=== PATIENT | female | born 1995 | race Two or more races ===

== ENCOUNTER 2020-07-19 06:47 | Emergency (ER) | payer MEDICAID ==
[~2020-07-19] VITALS: Ht 167.6 cm; Wt 85.0 kg
[2020-07-19] MEDS ORDERED: SODIUM CHLORIDE 0.9% 1,000ML IVBOLUS ONE (07:00)
[2020-07-19] MEDS ORDERED: ONDANSETRON ODT 4 MG PO ONE (07:00)
[2020-07-19] MEDS ORDERED: ONDANSETRON ODT 4 MG ONE (07:09)
--- NOTE | 2020-07-19 07:17 | NUR ---
PT C/O N/V AND DIARRHEA SINCE 07/17. PT ALSO HAS EPIGASTRIC PAIN, DULL. PT IS 1 WEEKS WITH FIRST CHILD. PT DENIES ANY MEDICAL HX.
--- NOTE | 2020-07-19 07:57 | NUR ---
PT OFF THE FLOOR TO ULTRASOUND
[2020-07-19 08:03] LABS: BASOPHILS % (AUTO) 0 % (0-1); EOSINOPHILS % (AUTO) 0 % (1-7); LYMPHOCYTES % (AUTO) 6 % (22-44); MEAN CORPUSCULAR HEMOGLOBIN 27.5 pg (27.0-34.8); MEAN CORPUSCULAR HGB CONC 33.9 g/dL (32.4-35.8); MEAN PLATELET VOLUME 8.3 fL (7.4-10.4); MONOCYTES % (AUTO) 2 % (2-9); NEUTROPHILS % (AUTO) 92 % (42-75); PLATELET COUNT 374 x10^3/uL (130-400); RED BLOOD COUNT 5.64 x10^6/uL (3.82-5.3); RED CELL DISTRIBUTION WIDTH 13.2 % (9.6-15.2)
--- NOTE | 2020-07-19 08:05 | NUR ---
PT BACK FROM ULTRASOUND
[2020-07-19 08:27] LABS: MD SCAN
[2020-07-19] MEDS ORDERED: METOCLOPRAMIDE 5 MG/ML, 2ML IVPush ONE (08:30)
[2020-07-19] MEDS ORDERED: METOCLOPRAMIDE 5 MG/ML, 2ML ONE (08:39)
--- NOTE | 2020-07-19 09:20 | NUR ---
PT STATES SHE FEELS RELIEF FROM THE NAUSEA AFTER MEDICATION.
[2020-07-19 09:39] LABS: MICROSCOPIC INDICATED
--- NOTE | 2020-07-19 10:29 | NUR ---
PT REC'VD DISCHARGE INSTRUCTIONS AND EDUCATION PT HAD NO FURTHER QUESTIONS. PT AMBULATED TO DC AREA, STEADY GAIT,.
[2020-07-19 10:33] VITALS: BP 120/70
== END 2020-07-19 10:35 | disposition home or self-care (01) ==
LOC: ED 08:16
DX: O23.11 Infections of bladder in pregnancy, first trimester (principal); R10.2 Pelvic and perineal pain; R11.2 Nausea with vomiting, unspecified; Z3A.11 11 weeks gestation of pregnancy
CPT/HCPCS: 36415; 76801; 81001; 84702; 85025; 87086; 96361; 96374; 99284; J2765; J7030; Q0162

== ENCOUNTER 2020-07-21 13:44 | Inpatient (IN) | payer MEDICAID ==
[~2020-07-21] VITALS: Ht 167.6 cm; Wt 83.7 kg
[2020-07-21 14:56] LABS: BASOPHILS % (AUTO) 0 % (0-1); EOSINOPHILS % (AUTO) 0 % (1-7); LYMPHOCYTES % (AUTO) 17 % (22-44); MEAN CORPUSCULAR HEMOGLOBIN 27.9 pg (27.0-34.8); MEAN CORPUSCULAR HGB CONC 34.3 g/dL (32.4-35.8); MEAN PLATELET VOLUME 8.2 fL (7.4-10.4); MONOCYTES % (AUTO) 6 % (2-9); NEUTROPHILS % (AUTO) 78 % (42-75); PLATELET COUNT 324 x10^3/uL (130-400); RED BLOOD COUNT 5.08 x10^6/uL (3.82-5.3); RED CELL DISTRIBUTION WIDTH 13.3 % (9.6-15.2)
[2020-07-21 15:00] LABS: MD NO
[2020-07-21] MEDS ORDERED: SODIUM CHLORIDE FLUSH 10ML SYR IVF ONE (15:00)
[2020-07-21] MEDS ORDERED: SODIUM CHLORIDE 0.9% 1,000ML IVBOLUS ONE (15:00)
[2020-07-21] MEDS ORDERED: METOCLOPRAMIDE 5 MG/ML, 2ML IVPush ONE (15:00)
[2020-07-21] MEDS ORDERED: METOCLOPRAMIDE 5 MG/ML, 2ML ONE (15:02)
[2020-07-21 15:10] LABS: ALANINE AMINOTRANSFERASE 63 U/L (12-78); ALBUMIN 3.4 g/dL (3.4-5.0); ANION GAP 8 mmol/L (5-15); CHLORIDE 102 mmol/L (98-107)
[2020-07-21 15:12] LABS: ALKALINE PHOSPHATASE 64 U/L (45-117); BILIRUBIN,TOTAL 0.9 mg/dL (0.2-1.0); TOTAL PROTEIN 7.5 g/dL (6.4-8.2)
[2020-07-21] MEDS ORDERED: POTASSIUM CHLORIDE 20 MEQ PACKET ONE (15:47)
--- NOTE | 2020-07-21 15:52 | NUR ---
task rn: Pt states feeling less nauseous after Reglan. vss, given warm blankets.
[2020-07-21] MEDS ORDERED: POTASSIUM CHLORIDE 20 MEQ PACKET PO ONE (16:00)
--- NOTE | 2020-07-21 16:27 | NUR ---
ALL RESULTS BACK, PT FOR RECHECK.
[2020-07-21] MEDS ORDERED: ACETAMINOPHEN 325 MG TABLET PO PRN (17:30)
[2020-07-21] MEDS ORDERED: PROMETHAZINE 25 MG/ML, 1ML IM PRN (17:30)
[2020-07-21] MEDS ORDERED: MELATONIN 5 MG TABLET PO PRN (17:30)
[2020-07-21] MEDS ORDERED: ONDANSETRON ODT 4 MG PO PRN (17:30)
--- NOTE | 2020-07-21 17:35 | NUR ---
ADMIT ORDER IN PLACE, DR SCHULZ IN TO SEE PT.
[2020-07-21] MEDS ORDERED: ONDANSETRON 2MG/ML, 2ML IVPush ONE (18:00)
[2020-07-21] MEDS ORDERED: POTASSIUM CHLORIDE 40 MEQ in SODIUM CHLORIDE 0.9% 500 ML IV ONE (18:00)
[2020-07-21] MEDS: NS + 20MEQ KCL 1,000 ML IV SCH (18:06)
--- NOTE | 2020-07-21 18:07 | NUR ---
REPORT TO DIP[facility], PT READY FOR TRANSPORT. NS WITH 40ME[facility] STARTED PRIOR TO TRANSPORT.
[2020-07-21] MEDS ORDERED: MAGNESIUM SULFATE PMX 2GM/50ML 50 ML IV ONE (18:30)
[2020-07-21 19:17] VITALS: BP 138/83
[2020-07-21 19:19] VITALS: BP 141/84
[2020-07-21] MEDS: METOCLOPRAMIDE 5 MG/ML, 2ML IVPush PRN (21:19)
[2020-07-21] MEDS: CEFDINIR 300 MG CAPSULE PO SCH (21:19)
[2020-07-21 21:56] LABS: MICROSCOPIC INDICATED
[2020-07-22] MEDS: ONDANSETRON 2MG/ML, 2ML IVPush PRN ×3 (00:34→22:38)
[2020-07-22 01:27] VITALS: BP 122/61
[2020-07-22] MEDS: NS + 20MEQ KCL 1,000 ML IV SCH ×2 (02:01→11:52)
[2020-07-22 06:41] LABS: BASOPHILS % (AUTO) 0 % (0-1); EOSINOPHILS % (AUTO) 0 % (1-7); LYMPHOCYTES % (AUTO) 18 % (22-44); MEAN CORPUSCULAR HEMOGLOBIN 27.6 pg (27.0-34.8); MEAN CORPUSCULAR HGB CONC 33.9 g/dL (32.4-35.8); MEAN PLATELET VOLUME 8.4 fL (7.4-10.4); MONOCYTES % (AUTO) 6 % (2-9); NEUTROPHILS % (AUTO) 76 % (42-75); PLATELET COUNT 299 x10^3/uL (130-400); RED CELL DISTRIBUTION WIDTH 13.1 % (9.6-15.2)
[2020-07-22 06:49] LABS: CHLORIDE 104 mmol/L (98-107)
[2020-07-22 06:53] LABS: ANION GAP 9 mmol/L (5-15); CALCIUM 8.2 mg/dL (8.5-10.1); CREATININE 0.45 mg/dL (0.55-1.02)
[2020-07-22 06:55] LABS: MD NO
[2020-07-22 09:16] VITALS: BP 119/75
[2020-07-22] MEDS: CEFDINIR 300 MG CAPSULE PO SCH ×2 (09:19→20:23)
[2020-07-22] MEDS: PRENATAL VIT/IRON/FA 1 EACH TABLET PO SCH (09:19)
[2020-07-22] MEDS ORDERED: POTASSIUM CHLORIDE 40 MEQ in SODIUM CHLORIDE 0.9% 500 ML IV SCH (10:45)
[2020-07-22] MEDS: POTASSIUM CHLORIDE 40 MEQ in SODIUM CHLORIDE 0.9% 500 ML IV SCH ×2 (11:52→17:14)
[2020-07-22 14:20] VITALS: BP 136/85
[2020-07-22] MEDS: POTASSIUM CHLORIDE 20 MEQ TAB.ER.PRT PO SCH (17:14)
[2020-07-22 19:19] VITALS: BP 119/75
[2020-07-22] MEDS: METOCLOPRAMIDE 5 MG/ML, 2ML IVPush PRN (20:23)
[2020-07-22 23:36] VITALS: BP 130/80
[2020-07-23] MEDS: NS + 20MEQ KCL 1,000 ML IV SCH ×2 (06:14→15:53)
[2020-07-23 07:37] VITALS: BP 124/75
[2020-07-23 08:42] LABS: ANION GAP 10 mmol/L (5-15); CALCIUM 8.7 mg/dL (8.5-10.1); CHLORIDE 106 mmol/L (98-107); CREATININE 0.43 mg/dL (0.55-1.02)
[2020-07-23] MEDS: CEFDINIR 300 MG CAPSULE PO SCH ×2 (09:43→21:40)
[2020-07-23] MEDS: PRENATAL VIT/IRON/FA 1 EACH TABLET PO SCH (09:43)
[2020-07-23] MEDS: ONDANSETRON 2MG/ML, 2ML IVPush PRN ×2 (09:43→09:46)
[2020-07-23] MEDS: POTASSIUM CHLORIDE 20 MEQ TAB.ER.PRT PO SCH ×2 (09:43→18:54)
[2020-07-23] MEDS: PROCHLORPERAZINE 5 MG/ML, 2ML IM PRN ×3 (09:50→18:54)
[2020-07-23 14:22] VITALS: BP 138/84
[2020-07-23 20:47] VITALS: BP 108/71
[2020-07-24] MEDS: PROCHLORPERAZINE 5 MG/ML, 2ML IM PRN ×6 (00:05→23:57)
[2020-07-24 00:10] VITALS: BP 134/91
[2020-07-24] MEDS: NS + 20MEQ KCL 1,000 ML IV SCH ×3 (00:32→18:03)
[2020-07-24 05:58] LABS: BASOPHILS % (AUTO) 0 % (0-1); EOSINOPHILS % (AUTO) 0 % (1-7); LYMPHOCYTES % (AUTO) 21 % (22-44); MEAN CORPUSCULAR HEMOGLOBIN 27.6 pg (27.0-34.8); MEAN CORPUSCULAR HGB CONC 33.8 g/dL (32.4-35.8); MEAN PLATELET VOLUME 8.4 fL (7.4-10.4); MONOCYTES % (AUTO) 5 % (2-9); NEUTROPHILS % (AUTO) 73 % (42-75); PLATELET COUNT 304 x10^3/uL (130-400); RED BLOOD COUNT 4.84 x10^6/uL (3.82-5.3); RED CELL DISTRIBUTION WIDTH 13.3 % (9.6-15.2)
[2020-07-24 06:00] LABS: ANION GAP 8 mmol/L (5-15); CALCIUM 8.5 mg/dL (8.5-10.1); CHLORIDE 106 mmol/L (98-107); CREATININE 0.32 mg/dL (0.55-1.02)
[2020-07-24 06:30] LABS: MD NO
[2020-07-24 06:51] VITALS: BP 129/77
[2020-07-24] MEDS ORDERED: POTASSIUM CHLORIDE 20 MEQ TAB.ER.PRT PO ONE (09:00)
[2020-07-24] MEDS: CEFDINIR 300 MG CAPSULE PO SCH ×2 (09:19→20:27)
[2020-07-24] MEDS: POTASSIUM CHLORIDE 20 MEQ TAB.ER.PRT PO SCH (09:19)
[2020-07-24] MEDS: PRENATAL VIT/IRON/FA 1 EACH TABLET PO SCH (09:19)
[2020-07-24 12:15] VITALS: BP 104/60
[2020-07-24 21:07] VITALS: BP 121/78
[2020-07-25] MEDS: NS + 20MEQ KCL 1,000 ML IV SCH ×2 (00:44→11:00)
[2020-07-25] MEDS: PROCHLORPERAZINE 5 MG/ML, 2ML IM PRN ×2 (04:12→08:29)
[2020-07-25 04:16] VITALS: BP 136/82
[2020-07-25 06:14] LABS: ALBUMIN 3.1 g/dL (3.4-5.0); ANION GAP 7 mmol/L (5-15); CALCIUM 8.9 mg/dL (8.5-10.1); CHLORIDE 105 mmol/L (98-107); CREATININE 0.35 mg/dL (0.55-1.02)
[2020-07-25 07:33] VITALS: BP 127/77
[2020-07-25] MEDS: PRENATAL VIT/IRON/FA 1 EACH TABLET PO SCH (08:25)
[2020-07-25] MEDS: CEFDINIR 300 MG CAPSULE PO SCH (08:25)
[2020-07-25] MEDS ORDERED: ONDA4TAB13 PO (10:42)
[2020-07-25] MEDS ORDERED: PROC25SU25 PR (10:42)
[2020-07-25] MEDS ORDERED: PROC10TA78 PO (11:35)
[2020-07-25] MEDS ORDERED: PROCHLORPERAZINE 10MG TABLET PO PRN (12:00)
== END 2020-07-25 13:10 | disposition home or self-care (01) | DRG 566 ==
LOC: ED 14:24 → INTOOBSV 17:38 → EDIP 17:38 → OBSVTOIN 17:38 → 3N 18:16 → 5SO 07-22 13:57 → 3N 07-22 13:58 → 5SO 07-22 14:35 → 3N 07-24 21:55 → DCLOUNGE 07-25 12:52
PROVIDERS: ADMIT Internal Medicine; ATTEND Family Medicine
DX: O21.1 Hyperemesis gravidarum with metabolic disturbance (principal); O23.41 Unspecified infection of urinary tract in pregnancy, first trimester; E86.0 Dehydration; Z3A.11 11 weeks gestation of pregnancy; D72.829 Elevated white blood cell count, unspecified
CPT/HCPCS: 36415; 80048; 80053; 80069; 81001; 83735; 84132; 85025; 87077; 87086; 87186; 96361; 96374; 96375; 99285; G0378; J2405; J3480; J0780; J2765; J3475; J7030; J7040